=== PATIENT | female | born 1990 | race American Indian/Alaskan Native ===

== ENCOUNTER 2018-05-24 23:36 | Emergency (ER) | payer OTHER ==
[2018-05-24 23:49] VITALS: BP 124/48
--- NOTE | 2018-05-25 04:39 | Emergency Department Report ---
[facility] Chief Complaint: Eye Problems Stated Complaint: LT EYE PAIN Time Seen by Provider: 05/25/18 04:34 Duration: 1 Day Side: Bilateral Severity: mild Symptoms: Yes Eye Itching, Yes Eye Redness, Yes Eye Pain, Yes Purulent Drainage , Yes Blurred Vision, No Preceding URI, No H/O Allergic Rhinitis, No Contact Lens Use, No Trauma, No Fever, No Headache Other History: Is a 28-year-old -[place] female bilateral eye irritation states she was exposed to some substance\in bilateral eyes erythema itching burning there is no decrease in vision ED Review of Systems ROS: Stated complaint: LT EYE PAIN Other details as noted in HPI Constitutional: denies: chills, fever Eyes: eye pain ENT: denies: ear pain, throat pain Respiratory: denies: cough, shortness of breath, wheezing Cardiovascular: denies: chest pain, palpitations Endocrine: no symptoms reported Gastrointestinal: denies: abdominal pain, nausea, diarrhea Genitourinary: denies: urgency, dysuria, discharge Musculoskeletal: denies: back pain, joint swelling, arthralgia Skin: denies: rash, lesions Neurological: denies: headache, weakness, paresthesias Psychiatric: denies: anxiety, depression Hematological/Lymphatic: denies: easy bleeding, easy bruising ED Past Medical Hx - Past Medical History Previous Medical History?: No Additional medical history: Obesity - Surgical History Past Surgical History?: No Hx Coronary Stent: No Hx Open Heart Surgery: No Hx Pacemaker: No Hx Internal Defibrillator: No Hx Cholecystectomy: No Hx Appendectomy: No Hx Breast Surgery: No - Family History Family history: lung disease - Social History Smoking Status: Never Smoker Substance Use Type: None - Medications Home Medications: Home Medications Medication Instructions Recorded Confirmed Last Taken Type Ibuprofen 800 mg PO TID PRN #1 tablet 05/25/18 Unknown Rx Ketotifen Fumarate [Zaditor] 2 drops OP BID #5 drops 05/25/18 Unknown Rx Polymyxin B Sulf/Trimethoprim 1 applicatio OP QID #10 ml 05/25/18 Unknown Rx [Polytrim Eye Drops] [facility] Exam - Exam General: Vital signs noted. No distress. Alert and acting appropriately. Eye Exam: Both Injection, Both EOMI, Neither Eye Foreign Body, Neither Lid Foreign Body, Neither Mucous Discharge, Neither Purulent Discharge, Neither Fluorescein Uptake HEENT: No Nasal Congestion, No Pharyngeal Erythema Remainder of HEENT: Normal Lungs: Yes Clear Lung Sounds, Yes Good Air Exchange, No Wheezes, No Stridor, No Cough, No Nasal Flaring, No Retractions, No Use of Accessory Muscles ED Course Vital Signs 05/24/18 23:41 Temperature 98.3 F Pulse Rate 62 Respiratory 18 Rate Blood Pressure 124/48 O2 Sat by Pulse 98 Oximetry - Reevaluation(s) Reevaluation #1: Exam anesthesia with tetracaine bilateral eyes for [place] lamp exam no corneal abrasions noted patient has bilat PERRLA EOMI, mild conjunctivae no weep noted terrie at [place] as irrigated eyelids inverted and swelling her mentation is improved l 05/25/18 04:42 05/25/18 04:45 ED Medical Decision Making - Medical Decision Making There is bacterial conjunctivitis likely to chemical exposure there is bilateral mild conjunctivitis or erythema with yellow exudate discharge from left eye there is no fever chills no throat or ear. Plan Ciprodex ophthalmic ibuprofen Zaditor eyedrops patient will follow-up with ophthalmology today Critical care attestation.: If time is entered above; I have spent that time in minutes in the direct care of this critically ill patient, excluding procedure time. ED Disposition Clinical Impression: Conjunctivitis Qualifiers: Conjunctivitis type: chronic Chronic conjunctivitis type: bacterial Laterality : bilateral Qualified Code(s): H10.403 - Unspecified chronic conjunctivitis, bilateral Disposition: DC-01 TO HOME OR SELFCARE Is pt being admited?: No Does the pt Need Aspirin: No Condition: Good Instructions: Conjunctivitis (ED) Prescriptions: Ibuprofen 800 mg PO TID PRN #1 tablet PRN Reason: Pain , Severe (7-10) Ketotifen Fumarate [Zaditor] 2 drops OP BID #5 drops Polymyxin B Sulf/Trimethoprim [Polytrim Eye Drops] 1 applicatio OP QID #10 ml Referrals: PRIMARY CARE, [Primary Care Provider] - 3-5 Days Forms: Work/School Release Form(ED) Time of Disposition: 04:54
== END 2018-05-25 05:25 | disposition home or self-care (01) ==
LOC: ED 23:36
DX: H10.403 Unspecified chronic conjunctivitis, bilateral (principal)
CPT/HCPCS: 99282; 99283

== ENCOUNTER 2018-06-18 23:50 | Emergency (ER) | payer OTHER ==
[2018-06-19] MEDS ORDERED: MOTRIN PO ONE (00:07)
[2018-06-19] MEDS ORDERED: MOTRIN ONE (00:09)
--- NOTE | 2018-06-19 03:55 | Emergency Department Report ---
ED Rash HPI - HPI Chief Complaint: Skin Rash Stated Complaint: RASH Time Seen by Provider: 06/19/18 03:50 Duration: 5 Days Rash Symptoms: Yes Itching, Yes Blistering, No Facial Swelling, No Tongue/Oral Swelling, No Breathing Difficulties, No Choking Sensation, No Wheezing/Dyspnea, No Peeling, No Fever, No Lightheaded, No Malaise, No Myalgias Other History: 28-year-old -[place] female presents to the emergency room for rash that she has on both 5 days. Patient does admit to working in the yard. 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 Patient persistently using calamine lotion. ED Review of Systems ROS: Stated complaint: RASH Other details as noted in HPI Comment: All other systems reviewed and negative Skin: rash (both forearms) ED Past Medical Hx - Past Medical History Previous Medical History?: No Additional medical history: Obesity - Surgical History Past Surgical History?: No Hx Coronary Stent: No Hx Open Heart Surgery: No Hx Pacemaker: No Hx Internal Defibrillator: No Hx Cholecystectomy: No Hx Appendectomy: No Hx Breast Surgery: No - Social History Smoking Status: Never Smoker Substance Use Type: None - Medications Home Medications: Home Medications Medication Instructions Recorded Confirmed Last Taken Type Ibuprofen 800 mg PO TID PRN #1 tablet 05/25/18 Unknown Rx Ketotifen Fumarate [Zaditor] 2 drops OP BID #5 drops 05/25/18 Unknown Rx Polymyxin B Sulf/Trimethoprim 1 applicatio OP QID #10 ml 05/25/18 Unknown Rx [Polytrim Eye Drops] Rash Exam - Exam General: Vital signs noted. No distress. Alert and acting appropriately. HEENT: No Periorbital Edema, No Conjuctival Injection, No Chemosis, No Perioral Edema, No Tongue Edema, No Uvular Edema, No Compromised Airway, No Drooling Lungs: Yes Good Air Exchange (Normal Breath Sounds), No Wheezes, No Ronchi, No Stridor, No Cough, No Labored Respirations, No Retractions, No Use of Accessory Muscles, No Other Abnormal Lung Sounds Skin: Yes Weeping, Yes Other (pustular lesions bilateral forearms) Other: Positive: Abdomen Normal, Neurologic Normal, Musculoskeletal Normal ED Course Vital Signs 06/18/18 23:54 Temperature 98.6 F Pulse Rate 63 Respiratory 16 Rate Blood Pressure 112/59 O2 Sat by Pulse 99 Oximetry ED Medical Decision Making - Radiology Data Patient is an evaluated by this provider fast track. Patient's rash appears to be a poison Ivory. Handout given for information on poison Ivory she can take Benadryl and continue with calamine lotion as needed. Critical care attestation.: If time is entered above; I have spent that time in minutes in the direct care of this critically ill patient, excluding procedure time. ED Disposition Clinical Impression: Poison marisol dermatitis Disposition: DC- TO HOME OR SELFCARE Is pt being admited?: No Does the pt Need Aspirin: No Condition: Stable Instructions: Poison Marisol (ED) Additional Instructions: You can take Benadryl for itchiness continue with the calamine lotion and follow -up with dermatology. Referral to dermatology and primary care listed below. Referrals: [facility] [Provider Group] - 3-5 Days [facility] [Provider Group] - 3-5 Days Your,Provider [Other] - 3-5 Days Forms: Work/School Release Form(ED)
[2018-06-19 06:45] VITALS: BP 108/56
== END 2018-06-19 04:35 | disposition home or self-care (01) ==
LOC: ED 23:50
DX: L23.7 Allergic contact dermatitis due to plants, except food (principal)
CPT/HCPCS: 99282

== ENCOUNTER 2021-07-04 00:10 | Emergency (ER) | payer SELFPAY | END 2021-07-04 00:54 | disposition left against medical advice (07) | LOC: ED 00:10 | DX: R51.9 Headache, unspecified (principal); Z53.21 Procedure and treatment not carried out due to patient leaving prior to being seen by health care provider ==